=== PATIENT | female | born 1955 ===

== ENCOUNTER → 2016-07-29 | Outpatient (REF) ==
[2016-07-29 11:41] LABS: THYROID STIMULATING HORMONE 0.311 uIU/mL (0.465-4.680)
== END ==
LOC: ZLAB.WCH 10:51
PROVIDERS: Family Medicine
DX: Z01.89 Encounter for other specified special examinations (principal)

== ENCOUNTER → 2016-12-22 | Outpatient (REF) ==
[2016-12-22 11:35] LABS: THYROID STIMULATING HORMONE 0.04 uIU/mL (0.465-4.680)
== END ==
LOC: ZLAB.WCH 10:48
PROVIDERS: Family Medicine
DX: Z01.89 Encounter for other specified special examinations (principal)

== ENCOUNTER → 2017-11-07 | Outpatient (REF) ==
[2017-11-07 16:42] LABS: THYROID STIMULATING HORMONE 0.079 uIU/mL (0.465-4.680)
== END ==
LOC: ZLAB.WCH 15:51
PROVIDERS: Family Medicine
DX: Z01.89 Encounter for other specified special examinations (principal)

== ENCOUNTER → 2017-12-21 | Outpatient (REF) ==
[2017-12-21 17:02] LABS: THYROID STIMULATING HORMONE 0.755 uIU/mL (0.465-4.680)
== END ==
LOC: ZLAB.WCH 15:58
PROVIDERS: Family Medicine
DX: Z01.89 Encounter for other specified special examinations (principal)

== ENCOUNTER → 2018-07-31 | Outpatient (REF) | LOC: COL.CARD 08:53 | DX: Z01.818 Encounter for other preprocedural examination (principal) ==